=== PATIENT | female | born 1955 ===

== ENCOUNTER 2018-10-29 14:14 | Emergency (ER) | payer BC ==
--- NOTE | 2018-10-29 15:44 | EDPHYS ---
Physician Documentation [facility] Name: Lucinda Pérez Age: 63 yrs Sex: Female : 1955 Arrival Date: 10/29/2018 Time: 14:17 Bed 12 Private MD: ED Physician Franklin Harrison HPI: 10/29 15:35 This 63 yrs old Female presents to ER via Ambulatory with complaints of Insect Bite. gs 15:35 the patient presents with a swollen area of the palmar aspect of right forearm. gs Description: The affected area is small, confluent, erythematous, 2 small areas of necrosis. Onset: The symptoms/episode began/occurred yesterday. Possible cause(s): insect sting, spider bite. Associated signs and symptoms: Pertinent negatives: pain, doesn't remember bite was painful. Severity of symptoms: At their worst the symptoms were moderate, in the emergency department the symptoms are unchanged. The patient has not experienced similar symptoms in the past. Historical: - Allergies: 14:27 No Known Allergies; ph - Home Meds: 14:27 None [Active]; ph - PMHx: 14:27 None; ph - PSHx: 14:27 None; ph - Immunization history:: Adult Immunizations unknown. - Social history:: The patient lives at home, Smoking status: Patient/guardian denies using tobacco. - Ebola Screening: : No symptoms or risks identified at this time. ROS: 15:35 All other systems are negative. gs Exam: 15:35 Head/Face: Normocephalic, atraumatic. Eyes: Pupils equal round and reactive to light, gs extra-ocular motions intact. Lids and lashes normal. Conjunctiva and sclera are non-icteric and not injected. Cornea within normal limits. Periorbital areas with no swelling, redness, or edema. ENT: Nares patent. No nasal discharge, no septal abnormalities noted. Tympanic membranes are normal and external auditory canals are clear. Oropharynx with no redness, swelling, or masses, exudates, or evidence of obstruction, uvula midline. Mucous membranes moist. Neck: Trachea midline, no thyromegaly or masses palpated, and no cervical lymphadenopathy. Supple, full range of motion without nuchal rigidity, or vertebral point tenderness. No Meningismus. Chest/axilla: Normal chest wall appearance and motion. Nontender with no deformity. No lesions are appreciated. Cardiovascular: Regular rate and rhythm with a normal S1 and S2. No gallops, murmurs, or rubs. Normal PMI, no JVD. No pulse deficits. Respiratory: Lungs have equal breath sounds bilaterally, clear to auscultation and percussion. No rales, rhonchi or wheezes noted. No increased work of breathing, no retractions or nasal flaring. Abdomen/GI: Soft, non-tender, with normal bowel sounds. No distension or tympany. No guarding or rebound. No evidence of tenderness throughout. Back: No spinal tenderness. No costovertebral tenderness. Full range of motion. MS/ Extremity: Pulses equal, no cyanosis. Neurovascular intact. Full, normal range of motion. Neuro: Awake and alert, GCS 15, oriented to person, place, time, and situation. Cranial nerves II-XII grossly intact. Motor strength 5/5 in all extremities. Sensory grossly intact. Cerebellar exam normal. Normal gait. 15:35 Constitutional: The patient appears alert, awake. 15:35 Skin: lesion(s), located on the palmar aspect of right forearm, 3x3 cm erythematous raised lesion 2 very small areas of necrosis. Vital Signs: 14:27 BP 163 / 88; Pulse 108; Resp 20; Temp 98.6(TE); Pulse Ox 96% on R/A; Weight 63.5 kg; ph Height 4 ft. 11 in. (149.86 cm); Pain 0/10; 16:00 BP 154 / 72; Pulse 89; Resp 18; Temp 97.9; Pulse Ox 100% on R/A; ph 14:27 Body Mass Index 28.28 (63.50 kg, 149.86 cm) ph MDM: 15:32 Patient medically screened. gs 15:35 Differential diagnosis: cellulitis, insect bite. Data reviewed: vital signs, nurses gs notes. Counseling: I had a detailed discussion with the patient and/or guardian regarding: the historical points, exam findings, and any diagnostic results supporting the discharge/admit diagnosis, the need for outpatient follow up. Administered Medications: No medications were administered Disposition: 10/29/18 15:43 Discharged to Home. Impression: Toxic effect of unspecified spider venom. - Condition is Stable. - Discharge Instructions: Spider Bite. - Prescriptions for Clindamycin HCl 150 mg Oral Capsule - take 1 capsule by ORAL route every 6 hours for 7 days; 28 capsule. - Medication Reconciliation Form, Thank You Letter, Antibiotic Education, Prescription Opioid Use form. - Follow up: Ramy Balderrama MD; When: 2 - 3 days; Reason: Re-evaluation by your physician. Signatures: Aleksandra Tran RN RN ph HarrisonFranklin MD MD gs Corrections: (The following items were deleted from the chart) 16:00 15:43 10/29/2018 15:43 Discharged to Home. Impression: Toxic effect of unspecified ph spider venom. Condition is Stable. Forms are Medication Reconciliation Form, Thank You Letter, Antibiotic Education, Prescription Opioid Use. Follow up: Ramy Balderrama; When: 2 - 3 days; Reason: Re-evaluation by your physician. gs
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
[2018-10-29] MEDS ORDERED: IBUPROFEN 400 MG TAB ONE (15:50)
== END 2018-10-29 16:00 | disposition home or self-care (01) ==
LOC: ER 14:14
DX: T63.301A Toxic effect of unspecified spider venom, accidental (unintentional), initial encounter (principal)
CPT/HCPCS: 99282